=== PATIENT | female | born 1965 | race Asian ===

== ENCOUNTER → 2017-04-29 | Day surgery (SDC) | payer BC ==
[~2017-04-29] MED LIST: IV RINGERS,LACTATED 1000ML 1,000 ML IV SCH; LIDOCAINE 1% 1 ML SYRINGE. ID PRN; LIDOCAINE 2% PF Vial for OR 5 ML VIAL. ONE; MIDAZOLAM HCL/PF 2 MG/2 ML VIAL. IV PRN; PROPOFOL 40 ML IV ONE; fentaNYL PF VIAL 100 MCG/2 ML VIAL IV PRN
[2017-04-29 10:57] VITALS: BP 125/57
--- NOTE | 2017-04-29 12:46 | CONS ---
DATE OF CONSULTATION: 04/29/2017 REQUESTING PHYSICIAN: Dr. Deal PRIMARY CARE PHYSICIAN: Dr. Deal REASON FOR PROCEDURE: Colorectal cancer screening. HISTORY OF PRESENT ILLNESS: This is a 51-year-old female who presents for colorectal cancer screening. Her family history is positive for colon polyps in her father. She has a daily bowel movement and denies any other gastrointestinal review of systems. ALLERGIES: No known drug allergies. PAST MEDICAL HISTORY: None. FAMILY MEDICAL HISTORY: Significant for colon polyps, diabetes and hypertension in her mother. SOCIAL HISTORY: She denies tobacco, alcohol or IV drug abuse. MEDICATIONS: Advil. PAST SURGICAL HISTORY: section. REVIEW OF SYSTEMS: A 13-point review of systems was done. It is positive as per HPI and otherwise negative. PHYSICAL EXAMINATION: VITAL SIGNS: She is afebrile. Vital signs are stable. GENERAL: She is a well-developed, well-nourished female, in no apparent distress. HEENT: Oropharynx is clear. CARDIOVASCULAR: S1, S2. LUNGS: Clear. ABDOMEN: Normoactive bowel sounds, soft, nontender, nondistended. EXTREMITIES: No edema. NEUROLOGIC: Awake, alert and oriented x 3. ASSESSMENT AND PLAN: 1. Colorectal cancer screening. Risk and benefits including bleeding, perforation, ____ were explained and she has agreed to proceed. 2. Family history of colon polyps in her father. ANU LONG MD DR: OUSMANE/kaycee JOB#: [id number] / [id number] chanel Deal Dr.
--- NOTE | 2017-04-30 14:40 | PATHOLOGY ---
PATHOLOGY REPORT * * * * * * * * FINAL DIAGNOSIS: A. Colon biopsies, transverse colon polyp: - Diminutive tubular adenoma. B. Colon biopsies, ascending colon polyp x 2: - Tubular adenomas. C. Colorectal biopsies, rectal polyp: - Hyperplastic polyp. D. Colon biopsies, sigmoid colon polyp: - Tubular adenoma. COMMENT: There is no high-grade dysplasia or evidence of malignancy. (JPM:mgr; 04/30/2017) REPORT ELECTRONICALLY SIGNED BY: Marko Woodward M.D. DATE/TIME: 04/30/2017 14:40 * * * * * * * * GROSS PATHOLOGY: A. Received in formalin labeled "Patti Schaffer, transverse colon polyp," are two segments of sullivan soft tissue each measuring 0.3 cm in maximum dimension. The specimen is submitted entirely in cassette A1. B. Received in formalin labeled "ascending colon polyp," are multiple segments of sullivan soft tissue measuring from 0.1 up to 0.6 cm in maximum dimension. The specimen is submitted entirely in cassette B1. C. Received in formalin labeled "rectal polyp," is a segment of sullivan soft tissue measuring 0.3 cm in maximum dimension. The specimen is submitted entirely in cassette C1. D. Received in formalin labeled "sigmoid colon polyp," are multiple segments of sullivan soft tissue measuring from 0.2 up to 0.8 cm in maximum dimension. The specimen is submitted entirely in cassette D1. (JPM; 04/29/17) INITIAL CPT CODE(S): A; 12863 B; 33733 C; 25673 D; 02509 Professional services performed by [facility] [place] [place] [address] Technical services performed by [facility] at [address] [place] [address] [address], [place] [address]. SPECIMEN(S) RECEIVED: A.Transverse colon polyp B.Ascending colon polyp x2 C.Rectal polyp D.Sigmoid colon polyp CLINICAL HISTORY: Colon screening PATIENT: PATTI SCHAFFER /AGE: 109/12/1965 (Age: 51) PATIENT #: [id number] ALT CASE #: SPECIMEN COLLECTION DATE: 04/29/2017 SPECIMEN RECEIVED DATE: 04/29/2017 [facility] - [address] [place] [address] - PHONE: [phone] * * * END OF REPORT * * *
== END | disposition home or self-care (01) ==
LOC: ENDOS 08:40
PROVIDERS: ATTEND Internal Medicine Gastroenterology
DX: Z12.11 Encounter for screening for malignant neoplasm of colon (principal); K63.5 Polyp of colon; K62.1 Rectal polyp
CPT/HCPCS: 45380; 45385; 88305; J2704; J2001